=== PATIENT | male | born 1975 | race Caucasian/White ===

== ENCOUNTER → 2022-04-14 09:59 | Outpatient (CLI) | payer OTHER, MEDICAID, SELFPAY ==
--- NOTE | 2022-04-14 | DI.MRI.S_ITS ---
PROCEDURE: MR SHOULDER LT WO CON INDICATIONS: Pain in left shoulder TECHNIQUE: Noncontrast oblique coronal T2 fast spin echo with fat saturation, oblique sagittal T1 spin echo and T2 fast spin echo with fat saturation, axial T1 spin echo and T2 fast spin echo with fat saturation through the shoulder. COMPARISON: None. FINDINGS: Image quality: Excellent. Rotator cuff: Tendinosis and low-grade articular and bursal surface partial thickness tear involving distal supraspinatus at its insertion on humeral head is seen extending to musculotendinous junction. Distal infraspinatus tendinosis at its insertion on humeral head is seen. Linear calcifications are noted superior to distal supraspinatus near its insertion on humeral head suggestive of hydroxyapatite deposition disease. Distal subscapularis tendon is intact. No full-thickness rotator cuff tendon rupture. Sagittal images demonstrate very mild supraspinatus muscle atrophy. Bones and bursae: No bone marrow contusions or fractures. There is expected postsurgical widening of acromioclavicular joint. Small amount of subacromial subdeltoid bursal fluid is seen.. Capsule and soft tissues: Signal abnormality and contour irregularity involving superior anterior labrum at 1 to 2 o'clock position is seen suggestive of subtle superior anterior labral tear. There is also similar signal abnormality and contour irregularity involving inferior labrum at 5 to 7 o'clock position. The long head of the biceps tendon demonstrates normal location and morphology. The rotator interval appears normal, without fibrosis. The coracohumeral ligament is normal in thickness. IMPRESSION: 1. Tendinosis and low-grade articular and bursal surface partial thickness tear involving distal supraspinatus extending to musculotendinous junction. Distal infraspinatus tendinosis. No full-thickness rotator cuff tendon rupture. Very mild supraspinatus muscle atrophy. 2. 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 3. Expected postsurgical widening of acromioclavicular joint. No fracture or dislocation. Small amount of subacromial subdeltoid bursal fluid. 4. Suggestion of subtle superior anterior labral tear at 1 to 2 o'clock position and inferior labral tear at 5 to 7 o'clock position. Dictated by: Filiberto Vernon M.D. on 04/14/2022 at 10:36 Approved by: Filiberto Vernon M.D. on 04/14/2022 at 13:06
== END ==
PROVIDERS: PCP Orthopaedic Surgery; Referring Provider Student in an Organized Health Care Education/Training Program; Visit Provider Student in an Organized Health Care Education/Training Program
DX: M75.112 Incomplete rotator cuff tear or rupture of left shoulder, not specified as traumatic (principal); M25.512 Pain in left shoulder
CPT/HCPCS: 73221

== ENCOUNTER → 2023-04-05 18:45 | Outpatient (CLI) | payer OTHER, MEDICAID, SELFPAY ==
--- NOTE | 2023-04-05 18:48 | DI.MRI.S_ITS ---
PROCEDURE: MR CERVICAL SPINE WO CON INDICATIONS: Radiculopathy, site unspecified TECHNIQUE: Noncontrast sagittal T1 spin echo and T2 fast spin echo, sagittal STIR, foraminal oblique sagittal T2 fast spin echo, and axial gradient echo or T2 fast spin echo through the cervical spine. COMPARISON: None. FINDINGS: Image quality: Excellent. Alignment and Curvature: There is normal bony alignment. Bone Marrow: Marrow demonstrates normal overall signal. Spinal Cord: Visualized spinal cord has normal size and signal. No cerebellar tonsillar herniation. Paraspinous Soft Tissues: No paravertebral masses. Prevertebral soft tissues are normal in thickness. C2-C3: Normal appearance. C3-C4: Broad-based disc bulge, uncovertebral hypertrophy. This results in mild spinal canal narrowing with contact of the anterior cord on the right. Additionally, there is moderate right neural foraminal narrowing. C4-C5: Mild uncovertebral hypertrophy causing mild right neural foraminal narrowing. C5-C6: Normal appearance. C6-C7: Posterior disc bulge with uncovertebral hypertrophy moderate bilateral neural foraminal narrowing. Moderate spinal canal narrowing. C7-T1: Normal appearance. IMPRESSION: Degenerative disc disease, most prominent at C3-4 , resulting in mild spinal canal narrowing and moderate right neural foraminal narrowing, as well as C6-7, with moderate spinal canal narrowing and moderate bilateral neural foraminal narrowing. Dictated by: Clifton Mckay M.D. on 04/05/2023 at 23:56 Approved by: Clifton Mckay M.D. on 04/05/2023 at 23:59
== END ==
LOC: MRI 18:46
PROVIDERS: PCP Student in an Organized Health Care Education/Training Program; Referring Provider Student in an Organized Health Care Education/Training Program; Visit Provider Student in an Organized Health Care Education/Training Program
DX: M50.11 Cervical disc disorder with radiculopathy, high cervical region (principal); M48.02 Spinal stenosis, cervical region
CPT/HCPCS: 72141